=== PATIENT | female | born 1945 | race Caucasian/White ===

== ENCOUNTER 2018-06-03 21:53 | Emergency (ER) | payer MEDICARE, OTHER ==
[~2018-06-03] VITALS: Ht 167.6 cm; Wt 81.6 kg
[~2018-06-03 21:53] MED LIST: LORA0.5T PO; LORA1TAB PO; LOSA1TAB25 PO; METH-3 PO; METO50TA6 PO; PHEN-566 PO; POTA20TA14 PO; TRAM50TA PO
[2018-06-03 22:11] VITALS: BP 178/97
--- NOTE | 2018-06-03 22:44 | ER.PDOC ---
General Chief Complaint: Abdomen Pain Stated Complaint: ABD PAIN Time seen by MD: 22:27 Source: patient Exam Limitations: no limitations History of Present Illness Initial Comments Pt with b/l low back discomfort that has now moved around to her lower abdomen. No N/V/D, no fever Radiation: RLQ, LLQ Associated Symptoms: denies symptoms Exacerbated by: movements Relieved By: nothing Allergies: Coded Allergies: Tetanus Vaccines and Toxoid (Verified Allergy, Unknown, SWELLING RASH, 07/07) Home Meds Reported Medications Lorazepam (LORAZEPAM) 0.5 Mg Tablet, 1 TAB PO HS PRN for ANXIETY, #30 TAB 03/14/15 Potassium Chloride (POTASSIUM CHLORIDE) 20 Meq Tab.er.prt, 1 TAB PO DAILY, #30 TAB 5 Refills 03/14/15 Metoprolol Tartrate 50MG (LOPRESSER 50MG) 50 Mg Tablet, 50 MG PO BID for HYPERTENSION, #60 TAB 07/01/14 Tramadol Hcl (TRAMADOL HCL) 50 Mg Tablet, 50 MG PO Q6 PRN for PAIN, TABLET 04/17/14 Losartan/Hydrochlorothiazide (LOSARTAN-HCTZ 100-12.5 MG TAB) 1 Each Tablet, 1 EACH PO DAILY, TABLET 04/17/14 Vital Signs First Vital Signs Date Time Temp Pulse Resp B/P (MAP) Pulse Ox O2 Delivery O2 Flow Rate FiO2 06/03/18 22:11 98.3 80 18 98.3 06/03/18 22:11 97 Room Air Last Vital Signs Date Time Temp Pulse Resp B/P (MAP) Pulse Ox O2 Delivery O2 Flow Rate FiO2 06/03/18 22:11 98.3 80 18 97 Room Air 98.3 Past Medical History Medical History: hypertension Surgical History: back, cholecystectomy, neck LMP (females 10-50): postmenopause Social History Smoking: non-smoker Alcohol Use: none Drug Use: none Constitutional: denies diaphoresis, denies fever, denies malaise, denies weakness EENTM: no symptoms reported Respiratory: no symptoms reported Cardiovascular: no symptoms reported Gastrointestinal: see HPI Genitourinary: denies burning, denies dysuria, denies discharge, denies frequency; flank pain; denies hematuria, denies incontinence; pain; denies urgency Musculoskeletal: see HPI Skin: no symptoms reported Psychiatric/Neurological: no symptoms reported Hematologic/Lymphatic: no symptoms reported All Other Systems: Reviewed and Negative Physical Exam General Appearance: Other (somewhat uncomfortable) HEENT: PERRL/EOMI, Normal ENT Inspection, TMs Normal, Pharynx Normal Neck: Non-Tender, Full Range of Motion, Supple, Normal Inspection Respiratory: chest non-tender, lungs clear, normal breath sounds, no respiratory distress, no accessory muscle use Cardiovascular: Normal Peripheral Pulses, Regular Rate, Rhythm, No Edema, No Gallop, No JVD, No Murmur Gastrointestinal: Tenderness (mild to lower abdomen/suprapubic) Back: No Vertebral Tenderness, CVA Tenderness (R) (minimal), CVA Tenderness (L ) (minimal) Extremities: Normal Range of Motion Skin: Normal Color Lymphatic: No Adenopathy Results/Orders Results/Orders Vital Signs Date Time Temp Pulse Resp B/P (MAP) Pulse Ox O2 Delivery O2 Flow Rate FiO2 06/03/18 22:11 98.3 80 18 97 Room Air 98.3 06/03/18 22:11 98.3 80 18 98.3 Progress Progress Pt has an ovarian cyst on the R side, but pain was b/l. No free fluid to indicate rupture. Has likely UTI, which may explain flank and suprapubic pain. Will have her f/u with Lead Machinist regarding cyst in ovary in post-menopausal pt. Course Vitals & review Data Vital Sign - Last 24 Hours 06/03/18 06/03/18 22:11 22:11 Temp 98.3 98.3 98.3 98.3 Pulse 80 80 Resp 18 18 Pulse Ox 97 O2 Delivery Room Air Sepsis Infection Criteria Pres: None O2 Sat by Pulse Oximetry: 97 Departure Time of Disposition: 23:39 Disposition: 01 HOME, SELF-CARE Impression: Primary Impression: UTI (urinary tract infection) Additional Impression: Ovarian cyst, right Condition: Stable Referrals: PEDRO PATEL DO (PCP) PRIMARY CARE PROVIDER Additional Instructions: See a liaison inspection laboratory assistant about your ovarian cyst on the right side. Duration or Time Spent with Pa: 45 Problem Qualifiers Primary Impression: UTI (urinary tract infection) Urinary tract infection type: acute cystitis Hematuria presence: without hematuria Qualified Codes: N30.00 - Acute cystitis without hematuria PAULINE CRAIG DO Jun 03, 2018 22:44
[2018-06-03 23:00] LABS: BASOPHIL % 0.1 % (0.0-0.2); EOSINOPHIL # 0.1 10^3/uL (0.0-0.2); EOSINOPHIL % 0.9 % (0.0-5.0); HEMOGLOBIN 13.6 g/dL (12.0-15.0); LYMPHOCYTES % 34.7 % (24.0-44.0); MEAN CELL HGB 32.2 pg (26-34); MEAN CELL HGB CONCENTRATION 34.3 g/dL (33-37); MEAN CORP VOLUME 93.8 fL (78-100); MEAN PLATELET VOLUME 10.7 fL (7.8-11.0); MONOCYTES % 11.8 % (5.0-12.0); NEUTROPHIL # 4.5 10^3/uL (1.8-7.7); NEUTROPHILS % 52.3 % (41.0-85.0); RED CELL DISTRIBUTION WIDTH 12.2 % (11.5-14.5); WHITE BLOOD CELL 8.6 10^3/uL (4.5-11.0)
[2018-06-03] MEDS ORDERED: MORPHINE SULFATE IV ONE (23:00)
[2018-06-03 23:02] LABS: BILIRUBIN,URINE NEGATIVE (NEGATIVE); UROBILINOGEN,URINE NORMAL (NEGATIVE)
[2018-06-03 23:03] LABS: APPEARANCE,URINE SLIGHTLY CLOUDY (CLEAR); UA COLOR STRAW (YELLOW)
[2018-06-03] MEDS ORDERED: MORPHINE SULFATE ONE (23:12)
--- NOTE | 2018-06-03 23:22 | DIREP ---
PROCEDURE:CT ABDOMEN/PELVIS W/O CONTRAST COMPARISON:[facility], CT, CT-ABDOMEN / PELVIS W CONTRAST, 01/25/2013, 09:14 PM. INDICATIONS:lower abd pain, R>L TECHNIQUE:Axial images were created through the abdomen and pelvis without intravenous contrast material. No oral contrast was administered. The lack of oral contrast limits assessment of the bowel Sagittal and coronal reconstructions were performed from source images. FINDINGS: LUNG BASES:Normal. No visible pulmonary or pleural disease. LIVER:Normal. No significant liver lesions are identified. BILIARY:The gallbladder is surgically absent. PANCREAS:Normal. No lesion, fluid collection, ductal dilatation, or atrophy. SPLEEN:Normal. No enlargement or focal lesion. ADRENALS:Normal. No mass or enlargement. URINARY TRACT:Normal. No focal lesions or hydronephrosis. AORTA/VASCULAR:Atherosclerosis. No aneurysm RETROPERITONEUM:Normal. No mass or adenopathy. BOWEL/MESENTERY:The appendix is visualized and appears normal. There is no intestinal obstruction, free fluid, free air or mesenteric inflammatory changes. Diverticulosis, without diverticulitis. ABDOMINAL WALL:Normal. No mass or hernia. PELVIC ORGANS:3.4 x 3.4 x 4.0 right ovarian cyst BONES:Lower lumbar spine degenerative joint disease and evidence of previous posterior lumbar fusion at L5-S1 OTHER:Negative. CONCLUSION: 1. Right ovarian cyst. 2. Diverticulosis, without diverticulitis. Dictated by: David Calabrese DO on 06/03/2018 at 11:16 PM
[2018-06-03 23:28] LABS: CALCIUM 9.2 mg/dL (8.4-10.5); CARBON DIOXIDE 24.8 mmol/L (20.0-32)
[2018-06-03 23:35] VITALS: BP 171/89
--- NOTE | 2018-06-03 23:50 | NUR ---
IV IV removed, tip intact. Placed cottonball over IV site, secured with coban. Instructed patient to remove coban in 30 minutes. Patient expressed understanding.
[2018-06-03 23:55] VITALS: BP 171/89
== END 2018-06-03 23:54 | disposition home or self-care (01) ==
LOC: ER 21:53
DX: N30.00 Acute cystitis without hematuria (principal); N83.201 Unspecified ovarian cyst, right side; I10 Essential (primary) hypertension; Z79.899 Other long term (current) drug therapy; Z90.49 Acquired absence of other specified parts of digestive tract; Z88.7 Allergy status to serum and vaccine
CPT/HCPCS: 36415; 74176; 80053; 81000; 82150; 83690; 85025; 87077; 87086; 87186; 96374; 99284; J2270

== ENCOUNTER → 2018-06-10 | Outpatient (CLI) | payer MEDICARE ==
--- NOTE | 2018-06-10 15:15 | DIREP ---
PROCEDURE:US PELVIC FOLLOWED BY TRANSVAGINAL COMPARISON:[facility], CT, CT ABD/PELVIS W/O, 06/03/2018, 10:50 PM. INDICATIONS:D27.0 BENIGN NEOPLASM OF RIGHT OVARY,rt ov cyst seen on CT 05/03/18 TECHNIQUE:Pelvic ultrasound using transabdominal technique. Endovaginal images were also obtained for better assessment of the uterus and adnexa. FINDINGS: LMP: Menopausal UTERUS:Size is 5.6 x 3.4 x 2.7 cm. The myometrium is homogeneous. ENDOMETRIUM:Thickness is 0.5 cm. RIGHT OVARY:Size is 4.4 x 3.5 x 4.0 cm. Simple cyst noted measuring 0.7 x 0.9 x 0.7 cm. Complex cyst noted measuring 2.3 x 1.9 x 1.2 cm. LEFT OVARY:Normal appearance. Size is 2.6 x 1.6 x 1.1 cm. CUL-DE-SAC:Normal. OTHER:Negative. CONCLUSION:Dominant follicle in the right ovary measuring 7 x 7 x 9 mm in size. A complex cyst in the right ovary measuring 2.3 x 1.9 x 1.2 cm in size. No endometrial or myometrial masses are seen. A close follow-up is recommended. Dictated by: MANDI Physician on 06/10/2018 at 03:06 PM ac
== END | disposition home or self-care (01) ==
LOC: RAD 13:26
PROVIDERS: ATTEND Obstetrics & Gynecology
DX: N83.01 Follicular cyst of right ovary (principal)
CPT/HCPCS: 76830; 76856

== ENCOUNTER → 2018-08-09 | Outpatient (CLI) | payer MEDICARE ==
--- NOTE | 2018-08-09 14:15 | DIREP ---
PROCEDURE:Digital Screening Mammogram TECHNIQUE:MLO, CC, and XCCL digital images of each breast are provided. Computer Assisted Detection (CAD) was utilized. COMPARISON:[facility], DIGITAL MAMMO SCREENING, 10/11/2013, 03:13 PM. [facility], MAMMOGRAM SCREENING, 04/29/2011, 09:20 AM. [facility], MAMMS, 06/13/2008, 03:52 PM. [facility], MAMMO BILATERAL SCREENING WITH CAD, 09/19/2015, 10:26 AM. INDICATIONS:SCREENING BREAST COMPOSITION:There are scattered areas of fibroglandular density. FINDINGS:There are no grouped microcalcifications, masses, or architectural distortions to suggest malignancy. There is no significant change as compared with the previous examination(s). IMPRESSION:No mammographic evidence of malignancy. RECOMMENDATIONS:Routine Screening Mammography per [employer] guidelines. OVERALL FINAL ASSESSMENT:BI-RADS 1 - Negative Mammogram Note: This facility participates in a mammography screening patient reminder system. Dictated by: Keagan Gonzales M.D. on 08/09/2018 at 02:11 PM
== END | disposition home or self-care (01) ==
LOC: RAD 12:56
PROVIDERS: ATTEND Family Medicine
DX: Z12.31 Encounter for screening mammogram for malignant neoplasm of breast (principal)
CPT/HCPCS: 77067

== ENCOUNTER 2018-11-25 20:50 | Emergency (ER) | payer MEDICARE ==
[~2018-11-25] VITALS: Ht 167.6 cm; Wt 78.5 kg
[2018-11-25 21:12] VITALS: BP 167/95
[2018-11-25 21:13] VITALS: BP 167/95
--- NOTE | 2018-11-25 21:13 | NUR ---
ARRIVAL PT ARRIVED FROM HOME. PT SEE'S DR JACKSON AT A PAIN CLINIC. PT STATES SHE WAS TAKEN OFF BACLOFEN AND PUT ON ROBAXIN. PT STATES PAIN IS WORSE AND HTN NOTED AT HOME. PT TOOK ALL BP MEDS AT HOME AND STATES IT DID NOT HELP. PT DID NOT CALL PAIN CLINIC. PT CAME TO ER FOR FURTHER EVALUATION.
--- NOTE | 2018-11-25 23:06 | PCM.EKG ---
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
--- NOTE | 2018-11-25 23:13 | ER.PDOC ---
General Chief Complaint: General Complaint Stated Complaint: HIGH BLOOD PRESSURE TRAVEL OUT OF US: No Time seen by MD: 21:00 Source: patient Exam Limitations: no limitations History of Present Illness Initial Comments pt state she has been on baclofen x3 years ands was stopped yesterday and started on robaxin yesterday which she states is not working Timing/Duration: 4-6 hours Severity: moderate Modifying Factors: worse with cold therapy, worse with eating, worse with immobilization, worse with medication; improves with movement; worse with rest, worse with other Associated Symptoms: denies symptoms Allergies: Coded Allergies: Tetanus Vaccines and Toxoid (Verified Allergy, Unknown, SWELLING RASH, 07/08/15) Home Meds Reported Medications Lorazepam (LORAZEPAM) 0.5 Mg Tablet, 1 TAB PO HS PRN for ANXIETY, #30 TAB 03/14/15 Potassium Chloride (POTASSIUM CHLORIDE) 20 Meq Tab.er.prt, 1 TAB PO DAILY, #30 TAB 5 Refills 03/14/15 Metoprolol Tartrate 50MG (LOPRESSER 50MG) 50 Mg Tablet, 50 MG PO BID for HYPERTENSION, #60 TAB 07/01/14 Tramadol Hcl (TRAMADOL HCL) 50 Mg Tablet, 50 MG PO Q6 PRN for PAIN, TABLET 04/17/14 Losartan/Hydrochlorothiazide (LOSARTAN-HCTZ 100-12.5 MG TAB) 1 Each Tablet, 1 EACH PO DAILY, TABLET 04/17/14 Past Medical History Medical History: hypertension Surgical History: back, cholecystectomy, neck LMP (females 10-50): Menopause Social History Smoking: non-smoker Alcohol Use: none Drug Use: none Review of Systems Constitutional: denies no symptoms reported, denies see HPI, denies chills, denies diaphoresis, denies fever, denies malaise, denies weakness, denies other EENTM: denies no symptoms reported, denies see HPI, denies eye pain, denies blurred vision, denies tearing, denies double vision, denies ear pain, denies ear discharge, denies nose pain, denies nose congestion, denies throat pain, denies throat swelling, denies mouth pain, denies mouth swelling, denies other Respiratory: denies no symptoms reported, denies see HPI, denies cough, denies orthopnea, denies shortness of breath, denies stridor, denies wheezing, denies other Cardiovascular: denies no symptoms reported, denies see HPI, denies chest pain, denies edema, denies palpitations, denies syncope, denies other Gastrointestinal: denies no symptoms reported, denies see HPI, denies abdominal pain, denies constipation, denies diarrhea, denies nausea, denies vomiting, den ies other Genitourinary: denies no symptoms reported, denies see HPI, denies discharge, denies dysuria, denies frequency, denies hematuria, denies pain, denies other Musculoskeletal: back pain Skin: denies no symptoms reported, denies see HPI, denies change in color, denies change in hair/nails, denies dryness, denies lesions, denies lumps, denies rash, denies other Psychiatric/Neurological: denies no symptoms reported, denies see HPI, denies anxiety, denies depressed, denies emotional problems, denies headache, denies numbness, denies paresthesia, denies pre-existing deficit, denies seizure, denies tingling, denies tremors, denies weakness, denies other Hematologic/Lymphatic: denies no symptoms reported, denies see HPI, denies anemia, denies blood clots, denies easy bleeding, denies easy bruising, denies swollen glands, denies other Immunological/Allergic: denies no symptoms reported, denies see HPI, denies food allergy, denies grass allergy, denies mold allergy, denies pollen allergy, denies HIV/AIDS, denies transplant Physical Exam General Appearance: WD/WN, Moderate Distress EENT: eyes nml inspection, nml ENT inspection, pharynx nml Neck: Non-Tender, Full Range of Motion, Supple (previous surgical scars noted ) Respiratory: chest non-tender, lungs clear, normal breath sounds, no respiratory distress, no accessory muscle use CVS: reg rate & rhythm, no murmur, no gallop, pulses nml, nml capillary refill Gastrointestinal: Normal Bowel Sounds, No Organomegaly, No Pulsatile Mass, Non Tender Back: Normal Inspection, No Vertebral Tenderness Extremities: Normal Range of Motion, Non-Tender, Normal Inspection, No Pedal Edema 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, No Motor/Sensory Deficits, Normal Mood/Affect, Oriented x 3 Skin: Normal Color, Warm/Dry Results/Orders Results/Orders Orders - AYDEE HARVEY MD Ekg-Routine (11/25/18 23:05) Vital Signs Date Time Temp Pulse Resp B/P (MAP) Pulse Ox O2 Delivery O2 Flow Rate FiO2 11/25/18 21:13 98.5 76 18 11/25/18 21:12 98.5 76 18 167/95 (119) 98 Room Air 11/25/18 21:09 98.5 76 18 98 Room Air Progress Progress pt states she wants to take her Baclofen in the ER SBP 130's , pt states she will stop the robaxin and continue on her baclofen , i have advised f/u with PCP EKG/XRAY/CT/US EKG: NSR (nsr , no acute findings) Course Duration or Total Time Spent w: 45 Vitals & review Data Vital Sign - Last 24 Hours 11/25/18 11/25/18 11/25/18 21:09 21:12 21:13 Temp 98.5 98.5 98.5 Pulse 76 76 76 Resp 18 18 18 B/P (MAP) 167/95 (119) Pulse Ox 98 98 O2 Delivery Room Air Room Air Sepsis Infection Criteria Pres: None O2 Sat by Pulse Oximetry: 98 Departure Time of Disposition: 23:53 Disposition: 01 HOME, SELF-CARE Impression: Primary Impression: Muscle spasms of neck Condition: Stable Referrals: LIZZIE LERNER ELECTRONIC COMPONENT PROCESSOR (PCP) PRIMARY CARE PROVIDER call for f/u Comments Rx for baclofen given Duration or Time Spent with Pa: 30 mins AYDEE HARVEY MD Nov 25, 2018 23:13
== END 2018-11-26 00:15 | disposition home or self-care (01) ==
LOC: ER 20:50
DX: M62.838 Other muscle spasm (principal); I10 Essential (primary) hypertension; Z79.899 Other long term (current) drug therapy; Z90.49 Acquired absence of other specified parts of digestive tract
CPT/HCPCS: 93005; 99283

== ENCOUNTER → 2019-05-10 | Outpatient (CLI) | payer OTHER ==
--- NOTE | 2019-05-10 12:40 | PCM.EKG ---
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
--- NOTE | 2019-05-10 13:10 | DIREP ---
PROCEDURE:CHEST 2 VIEWS COMPARISON:[facility], [place], CHEST 2 VIEW, 10/16/2013, 11:49 AM. [facility], [place], XRAY CHEST SINGLE VW, 01/04/2016, 05:09 PM. INDICATIONS:DYSPNEA FINDINGS: LUNGS/PLEURA:No significant pulmonary parenchymal abnormalities. No effusions. VASCULATURE:Normal. Unremarkable pulmonary vasculature. CARDIAC:Normal. No cardiac silhouette abnormality or cardiomegaly. MEDIASTINUM:Normal. No visible mass or adenopathy. BONES:Surgical changes of the visualized cervical spine. Mild curvature of the thoracic spine, apex toward the right OTHER:Cholecystectomy CONCLUSION:No acute findings. No significant interval change Dictated by: Catarino Cornell MD on 05/10/2019 at 01:08 PM
== END | disposition home or self-care (01) ==
LOC: RAD 12:13
PROVIDERS: ATTEND Nurse Practitioner
DX: R53.83 Other fatigue (principal); R06.00 Dyspnea, unspecified
CPT/HCPCS: 71046; 93005

== ENCOUNTER → 2019-10-24 | Outpatient (CLI) | payer MEDICARE, OTHER | END | disposition home or self-care (01) | LOC: NPLAB 10:31 | PROVIDERS: ATTEND Nurse Practitioner Family | DX: R30.0 Dysuria (principal) | CPT/HCPCS: 87086 ==

== ENCOUNTER → 2020-08-19 | Outpatient (CLI) | payer MEDICARE ==
[~2020-08-19] MED LIST changes: +LEXISCAN IV ONE
--- NOTE | 2020-08-19 23:55 | STRESS ---
DATE OF SERVICE: 08/19/2020 DICTATOR NAME: CHERYL LACEYCRISTOPHERShimon CARDIAC STRESS TEST INDICATION: Chest pain. FINDINGS: Baseline EKG shows normal sinus rhythm with nonspecific ST-T wave changes. Stress EKG shows normal sinus rhythm, unchanged from baseline. At the end of recovery, EKG shows normal sinus rhythm, unchanged from baseline. Baseline blood pressure is 163/94 and remained the same during stress. At the end of recovery, the blood pressure is 172/91. Baseline heart rate is 66 beats per minute and [place] to 74 beats per minute during stress. At the end of recovery, the heart rate was 83 beats per minute. Blood pressure and heart rate were appropriate for stress. There were no significant symptoms noted during stress. There were no arrhythmias noted during stress. EKG portion of stress test is negative for myocardial ischemia. Nuclear images were obtained with a rest dose of 10.21 mCi technetium-99 sestamibi and a stress dose of 32.9 mCi technetium-99 sestamibi. Nuclear images reveal a moderate sized reversible perfusion defect involving the apical wall suggestive of myocardial ischemia. There is no evidence of myocardial infarction. Left ventricular ejection fraction is 75%. EDV is 38 mL, ESV is 10 mL. The left ventricle is normal in size. Gated motion image shows normal wall motion across all segments of the left ventricle. TID is 1.27. There is no evidence of diaphragmatic attenuation artifact. IMPRESSION: 1. There is a moderate sized reversible perfusion defect involving the apical wall suggestive of myocardial ischemia. 2. There is no evidence of myocardial infarction. 3. This is an abnormal study. PLAN: Recommend left heart catheterization. Anila BERNABE D.O. DR: KAROLINA TID: [id number] RECEIPT: [id number]
== END | disposition home or self-care (01) ==
LOC: RAD 09:01
PROVIDERS: ATTEND Internal Medicine Interventional Cardiology
DX: R07.9 Chest pain, unspecified (principal)
CPT/HCPCS: 78452; 93017; A9500; J2785

== ENCOUNTER 2020-09-10 02:53 | Emergency (ER) | payer MEDICARE ==
[~2020-09-10 02:53] MED LIST changes: +ALEN70TA76 PO; +AMLO-169 PO; +ASPI-929 PO; +ATOR20TA PO; +BACL10TA PO; +CLOP75TA PO; +HYDR-3097 PO; -LEXISCAN IV ONE; +PANT40TA6 PO
--- NOTE | 2020-09-10 07:42 | PCM.EKG ---
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
== END 2020-09-10 04:30 | disposition home or self-care (01) ==
LOC: ER 02:53
DX: R14.0 Abdominal distension (gaseous) (principal); R06.02 Shortness of breath
CPT/HCPCS: 93005; 99283

== ENCOUNTER → 2020-12-13 | Outpatient (CLI) | payer MEDICARE ==
--- NOTE | 2020-12-13 17:12 | DIREP ---
PROCEDURE:US DUPLEX LOWER EXTREMITY ARTERY BILAT COMPARISON:None. INDICATIONS:CAD TECHNIQUE:A comprehensive color duplex Doppler ultrasound examination of the bilateral lower extremities was performed. Color image and bidirectional spectral Doppler wave form analysis, and peak systolic flow measurements of the common femoral, profunda femoral, superficial femoral, and popliteal arteries were performed. Ankle/brachial indices were measured at the distal posterior tibial artery and anterior tibial/dorsalis pedis. FINDINGS: RIGHT LOWER EXTREMITY: PT STEWART: 1.10 COMMON FEMORAL:66.2 cm/sTriphasic PROFUNDA FEMORIS:72.0 cm/sBiphasic SUPERFICIAL FEMORAL (dist):125.1 cm/sBiphasic POPLITEAL (dist):62.5 cm/sBiphasic POSTERIOR TIBIAL (dist):78.0 cm/sBiphasic PERONEAL (mid):44.3 cm/sBiphasic ANTERIOR TIBIAL (dist):55.1 cm/sBiphasic DORSALIS PEDIS:82.3 cm/sBiphasic LEFT LOWER EXTREMITY: PT STEWART: 1.10 COMMON FEMORAL:122.2 cm/sBiphasic PROFUNDA FEMORIS:61.2 cm/sBiphasic SUPERFICIAL FEMORAL (dist):101.3 cm/sBiphasic POPLITEAL (dist):63.8 cm/sBiphasic POSTERIOR TIBIAL (dist):73.1 cm/sBiphasic PERONEAL (mid):52.6 cm/sBiphasic ANTERIOR TIBIAL (dist):92.5 cm/sBiphasic DORSALIS PEDIS:58.6 cm/sBiphasic CONCLUSION: 0-19% stenosis of the right superficial femoral artery, right dorsalis pedis, and left anterior tibial artery. No significant obstructive disease by STEWART. Suspect inflow disease on the left given asymmetry. ABIs greater than 1.4 indicate noncompressible vessels, likely to have significant peripheral vascular disease (PVD). ABIs of 0.91 to 1.3 indicate no significant obstructive disease. ABIs of 0.41 to 0.90 indicate grade I claudication. ABIs less than 0.4 indicate limb-threatening ischemia of grade I or grade II. % stenosisPSV (cm/s)Velocity ratio0-19<150<[id number]>75>300>4 Dictated by: [facility] Physician on 12/13/2020 at 04:15 PM froylan
== END | disposition home or self-care (01) ==
LOC: RAD 11-07 12:53
PROVIDERS: ATTEND Internal Medicine Interventional Cardiology
DX: I70.213 Atherosclerosis of native arteries of extremities with intermittent claudication, bilateral legs (principal)
CPT/HCPCS: 93922; 93925

== ENCOUNTER → 2021-02-18 | Outpatient (CLI) | payer MEDICARE ==
[~2021-02-18] MED LIST changes: +POTA-148 PO; -POTA20TA14 PO
== END | disposition home or self-care (01) ==
LOC: NPLAB 11:07
PROVIDERS: ATTEND Nurse Practitioner Family
DX: N39.0 Urinary tract infection, site not specified (principal)
CPT/HCPCS: 87086

== ENCOUNTER 2021-03-13 21:48 | Emergency (ER) | payer MEDICARE ==
[~2021-03-13] VITALS: Ht 167.6 cm; Wt 77.1 kg
[2021-03-13 22:03] VITALS: BP 184/112
[2021-03-13 22:12] VITALS: BP 184/112
--- NOTE | 2021-03-13 22:29 | ER.PDOC ---
General Chief Complaint: Extremities Stated Complaint: LEG/ANKLE SWELLING TRAVEL OUT OF US: No Time seen by MD: 22:01 Source: patient Exam Limitations: no limitations History of Present Illness Initial Comments pt said that for the last 4 days she has been having annkle swelling in both ankle, worse in the left. She was standing and siting today and said she saw that the soles of her fee were bluis, but htere was no pain. In the ER, she has good ant tiial pulse bilaterally and no bluish or purplish coloration. She denies any pain in the ankle, no fall or trauma, no recent long road trip, no hormone therapy Timing/Duration: other (4 days) Severity: mild Allergies: Coded Allergies: Tetanus Vaccines and Toxoid (Verified Allergy, Unknown, SWELLING RASH, 09/04/20) clindamycin (Verified Allergy, Unknown, 09/05/20) topiramate (Verified Allergy, Unknown, 09/05/20) Home Meds Active Scripts Aspirin (ASPIRIN EC) 81 Mg Tablet., 81 MG PO DAILY for 30 Days, #30 3 Refills Prov:RONI VEGA APRN HOME DEMONSTRATION AGENT 09/06/20 Atorvastatin 20MG (LIPITOR 20MG) 20 Mg Tablet, 40 MG PO HS for 30 Days, #30 TAB 3 Refills Prov:RONI VEGA APRN HOME DEMONSTRATION AGENT 09/06/20 Clopidogrel Bisulfate (CLOPIDOGREL) 75 Mg Tablet, 75 MG PO DAILY for 30 Days, #30 TAB 3 Refills Prov:RONI VEGA APRN HOME DEMONSTRATION AGENT 09/06/20 Reported Medications Amlodipine Besylate (AMLODIPINE BESYLATE) 5 Mg Tablet, 1 TAB PO ACL, #30 TAB 5 Refills 09/04/20 Hydrocodone Bit/Acetaminophen (NORCO 5-325) 1 Each Tablet, 1 EACH PO ACL, #30 TAB 09/04/20 Hydrocodone Bit/Acetaminophen (NORCO 5-325) 1 Each Tablet, 0.5 TAB PO BID, #60 TAB 09/04/20 Pantoprazole Sodium (PANTOPRAZOLE SODIUM) 40 Mg Tablet.dr, 1 TAB PO DAILY, #30 TAB 3 Refills 09/04/20 Baclofen (BACLOFEN) 10 Mg Tablet, 1 TAB PO BID, #90 TAB 2 Refills 09/04/20 Alendronate Sodium (ALENDRONATE SODIUM) 70 Mg Tablet, 70 MG PO Q7D, TAB 09/04/20 Metoprolol Tartrate 50MG (LOPRESSER 50MG) 50 Mg Tablet, 50 MG PO BID for HYPERTENSION, #60 TAB 07/01/14 Past Medical History Medical History: coronary artery disease, cardiac problems, heart valve disease, hypertension Surgical History: back, cholecystectomy, , neck, stent Social History Alcohol Use: none Drug Use: none Reviewed Nursing Reviewed: Vital Signs, Abn. Noted, Nursing Assessment Review of Systems Constitutional: no symptoms reported EENTM: no symptoms reported Respiratory: no symptoms reported Cardiovascular: no symptoms reported Gastrointestinal: no symptoms reported Musculoskeletal: joint swelling Skin: no symptoms reported Psychiatric/Neurological: no symptoms reported Hematologic/Lymphatic: no symptoms reported All Other Systems: Reviewed and Negative Physical Exam General Appearance: No Apparent Distress Neck: Non-Tender Respiratory: chest non-tender CVS: reg rate & rhythm Extremities: Normal Range of Motion, Non-Tender, Swelling, Other (ankle swelling, trace pitting edema) Skin: Normal Color Lymphatic: No Adenopathy Results/Orders Results/Orders Orders - RAMSES PHILLIPS MD Cbc With Auto Diff (03/13/21 22:10) C-Reactive Protein (03/13/21 22:10) Erythrocyte Sedimentation Rate (03/13/21 22:10) D-Dimer (03/13/21 22:10) Troponin I High Sensitivity (03/13/21 22:22) Probnp B-Type Motorboat Mechanic Inboard (03/13/21 22:22) Ekg-Routine (03/13/21 22:22) Vital Signs Date Time Temp Pulse Resp B/P (MAP) Pulse Ox O2 Delivery O2 Flow Rate FiO2 03/13/21 22:12 98.3 117 16 184/112 (136) 98 Room Air 03/13/21 22:03 98.3 117 16 03/13/21 22:03 98.3 117 16 98 03/13/21 22:03 98.3 117 16 184/112 (136) 98 Room Air Laboratory Tests Test 03/13/21 22:35 03/13/21 23:05 White Blood Count 6.6 10^3/uL (4.5-11.0) Red Blood Count 3.79 10^6/uL (4.00-5.20) L Hemoglobin 12.4 g/dL (12.0-15.0) Hematocrit 37.0 % (36.0-46.0) Mean Corpuscular Volume 97.6 fL (78-100) Mean Corpuscular Hemoglobin 32.7 pg (26-34) Mean Corpuscular Hemoglobin Concent 33.5 g/dL (33-36.5) Red Cell Distribution Width 12.0 % (11.5-14.5) Platelet Count 183 10^3/uL (150-400) Mean Platelet Volume 10.8 fL (7.8-11.0) Neutrophils (%) (Auto) 48.6 % (41.0-85.0) Lymphocytes (%) (Auto) 39.4 % (24.0-44.0) Monocytes (%) (Auto) 10.5 % (5.0-12.0) Neutrophils # (Auto) 3.2 10^3/uL (1.8-7.7) Lymphocytes # (Auto) 2.60 10^3/uL1 (1.0-4.8) Monocytes # (Auto) 0.7 10^3/uL (0.3-0.8) Absolute Immature Granulocyte (auto 0.01 10^3 u/L (0-2) Absolute Eosinophils (auto) 0.1 10^3/uL (0.0-0.2) Immature Granulocytes % 0.20 % (0.00-0.50) Eosinophils % 1.1 % (0.0-5.0) Basophils % 0.2 % (0.0-0.2) Basophils # 0.0 10^3/uL (0.0-0.1) Erythrocyte Sedimentation Rate 4 mm/hr (0-20) Troponin I High Sensitivity 7 ng/L (0-50) C-Reactive Protein < 2.00 mg/dL (0.00-5.00) Pro-B-Type Natriuretic Peptide 263 pg/mL (0-125) H D-Dimer 0.21 mg/L (0.19-0.49) Progress Progress ddimer neg, pro bn mildly elevated EKG/XRAY/CT/US EKG: NSR, rhythm, no ST T wave changes EKG Comments: rate 84, no ST elevation, ormal [place] interval ER DEPART Departure Time of Disposition: 22:46 Disposition: 01 HOME / SELF CARE / HOMELESS Impression: Primary Impression: Ankle swelling Condition: Stable Patient Instructions: Edema, [id number], Peripheral Edema Referrals: TRACEY MONTANO HOME DEMONSTRATION AGENT (PCP) PRIMARY CARE PROVIDER Duration or Time Spent with Pa: 9 RAMSES PHILLIPS MD Mar 13, 2021 22:29
--- NOTE | 2021-03-13 22:46 | PCM.EKG ---
[facility] Test Date: 2021-03-13 Test Time: 22:43:02 Pat Name: ANAID TEJADA Department: Room: Gender: F Manager Msw: JANNETH : 1945 Requested By: RAMSES PHILLIPS Order Number: [id number] Reading MD: Measurements Intervals [place] Rate: 84 P: -29 MI: 137 QRS: -4 QRSD: 83 T: 40 QT: 404 QTc: 478 Interpretive Statements Sinus rhythm Minimal ST elevation, inferior leads Baseline wander in lead(s) II,III,aVF Compared to ECG 09/10/2020 03:29:37 ST (T wave) deviation now present T-wave abnormality no longer present Please click the below link to view image of tracing.
[2021-03-13 22:51] LABS: BASOPHIL % 0.2 % (0.0-0.2); EOSINOPHIL # 0.1 10^3/uL (0.0-0.2); EOSINOPHIL % 1.1 % (0.0-5.0); LYMPHOCYTES % 39.4 % (24.0-44.0); MEAN CORP HGB 32.7 pg (26-34); MONOCYTES # 0.7 10^3/uL (0.3-0.8); MONOCYTES % 10.5 % (5.0-12.0); NEUTROPHIL # 3.2 10^3/uL (1.8-7.7); NEUTROPHILS % 48.6 % (41.0-85.0); PLATELET COUNT 183 10^3/uL (150-400)
[2021-03-14 00:04] VITALS: BP 145/75
== END 2021-03-14 00:01 | disposition home or self-care (01) ==
LOC: ER 21:48
DX: M25.472 Effusion, left ankle (principal); R60.0 Localized edema; I10 Essential (primary) hypertension; I25.10 Atherosclerotic heart disease of native coronary artery without angina pectoris; Z79.82 Long term (current) use of aspirin; Z79.899 Other long term (current) drug therapy; Z88.1 Allergy status to other antibiotic agents; Z90.49 Acquired absence of other specified parts of digestive tract; Z88.8 Allergy status to other drugs, medicaments and biological substances
CPT/HCPCS: 36415; 83880; 84484; 85025; 85379; 85651; 86140; 93005; 99284